=== PATIENT | female | born 1960 | race African-American/Black ===

== ENCOUNTER 2016-06-18 18:44 | Emergency (ER) | payer OTHER ==
[2016-06-18 19:01] VITALS: BP 160/90; PULSE 82; TEMP 97.9; BMI 28.3
--- NOTE | 2016-06-18 19:09 | PDOC ---
History of Present Illness - General Chief Complaint: Injury Stated Complaint: LEFT PINKY TOE INJURY Time Seen by Provider: 06/18/16 18:48 History Source: Patient Exam Limitations: No Limitations - History of Present Illness Initial Comments: 06/18/16 19:07 injured left pinky toe while dancing barefoot at [employer] hit her toe on the step. no gross deformity or swelling. Occurred: reports: just prior to arrival Severity: Yes: mild Lower Extremity Pain Location: left: 5th toe Method of Injury: Yes: other (stubbed toe ) Past History - Past Medical History Allergies/Adverse Reactions: Allergies Allergy/AdvReac Type Severity Reaction Status Date / Time No Known Drug Allergies Allergy Verified 06/18/16 18:55 Home Medications: Ambulatory Orders Calcium Carbonate/Vitamin D3 [Liquid Calcium with Vitamin D] 1 each PO DAILY Mv,Iron,Min/Folic Acid/Biotin [Hair, Skin & Nails Softgel] 66.7 mcg PO DAILY Anemia: Yes (NOT AT PRESENT) Asthma: No Cancer: No Cardiac Disorders: No CVA: No COPD: No CHF: No Dementia: No Diabetes: Yes (BORDERLINE) GI Disorders: No Disorders: No HTN: Yes Hypercholesterolemia: No Liver Disease: No Seizures: No Thyroid Disease: No - Surgical History Abdominal Surgery: No Appendectomy: No Cardiac Surgery: No Cholecystectomy: No Lung Surgery: No Neurologic Surgery: No Orthopedic Surgery: No - Psycho/Social/Smoking Cessation Hx Suicidal Ideation: No Smoking History: Never smoked Information on smoking cessation initiated: No Hx Alcohol Use: No Drug/Substance Use Hx: No Substance Use Type: None Hx Substance Use Treatment: No Review of Systems - Review of Systems Able to Perform ROS?: Yes Is the patient limited Sudanese proficient: No Constitutional: No: Symptoms Reported HEENTM: No: Symptoms Reported Respiratory: No: Symptoms reported Cardiac (ROS): No: Symptoms Reported ABD/GI: No: Symptoms Reported : No: Symptoms Reported Integumentary: No: Symptoms Reported Neurological: No: Symptoms reported *Physical Exam - Vital Signs Last Vital Signs Temp Pulse Resp BP Pulse Ox 97.9 F 82 18 160/90 98 06/18/16 18:46 06/18/16 18:46 06/18/16 18:46 06/18/16 18:46 06/18/16 18:46 - Physical Exam General Appearance: Yes: Nourished, Appropriately Dressed HEENT: positive: EOMI, ASIA Musculoskeletal: positive: Normal Inspection Extremity: positive: Normal Capillary Refill, Normal Inspection, Normal Range of Motion Integumentary: positive: Normal Color, Dry, Warm Neurologic: positive: family medicine chair II-XII NML intact, Fully Oriented, Alert, Normal Mood/ Affect, Normal Response, Motor Strength 09/16 Procedures - Splinting Progress: 06/18/16 19:31 migue tape placed to left fifth and fourth toes ED Treatment Course - RADIOLOGY Radiology Studies Ordered: Category Date Time Status TOE(S) LEFT [RAD] Stat Radiology 06/18/16 19:05 Ordered Medical Decision Making - Medical Decision Making 06/18/16 19:07 cc: left 5th toe injury at [employer] will xray to r/o fx pt refused pain medicine *DC/Admit/Observation/Transfer Diagnosis at time of Disposition: Toe fracture, left Qualifiers: Encounter type: initial encounter Toe: lesser toe Fracture type: closed Phalanx : middle Fracture alignment: displaced Qualified Code(s): S92.522A - Displaced fracture of medial phalanx of left lesser toe(s), initial encounter for closed fracture - Discharge Dispostion Disposition: HOME Condition at time of disposition: Good - Referrals Referrals: Carmelo Mora [Primary Care Provider] - Tevin Gonzales MD [Staff Physician] - - Patient Instructions Additional Instructions: follow with for follow up next week keep the toes migue taped at all times and wear your boots for support take motrin as needed for pain
== END 2016-06-18 19:36 | disposition home or self-care (01) ==
LOC: JER 18:44 → JERFT 18:44
DX: S92.522A Displaced fracture of middle phalanx of left lesser toe(s), initial encounter for closed fracture (principal); W22.8XXA Striking against or struck by other objects, initial encounter; Y93.49 Activity, other involving dancing and other rhythmic movements; Y92.22 Religious institution as the place of occurrence of the external cause; Y99.8 Other external cause status
CPT/HCPCS: 73660-TC; 99281-25

== ENCOUNTER 2024-02-10 10:48 | Emergency (ER) | payer OTHER, BC ==
[2024-02-10 11:00] VITALS: RESP 16; BMI 25.7
[2024-02-10] MEDS ORDERED: KETOROLAC TROMETHAMINE 15 MG/ML VIAL ONE (11:50)
[2024-02-10] MEDS ORDERED: LIDOCAINE 4% PATCH TP ONE (11:50)
[2024-02-10] MEDS: LIDOCAINE 4% PATCH TP ONE (11:59)
[2024-02-10] MEDS: KETOROLAC TROMETHAMINE 15 MG/ML VIAL IM ONE (11:59)
[2024-02-10] MEDS: KETOROLAC TROMETHAMINE 30 MG/1 ML VIAL IM ONE (12:00)
[2024-02-10 14:39] VITALS: PULSE 68; TEMP 97.9
[2024-02-10] MEDS: METHOCARBAMOL 500 MG TABLET PO ONE (16:13)
[2024-02-10 17:03] VITALS: BP 167/78
[2024-02-10] MEDS ORDERED: LIDOCAINE PATCH REMOVAL MC SCH (22:00)
== END 2024-02-10 17:03 | disposition home or self-care (01) ==
LOC: JERFT 10:48
PROC: 3E0133Z Introduction of Anti-inflammatory into Subcutaneous Tissue, Percutaneous Approach (ICD-10-PCS; principal; 2024-02-10)
DX: M25.511 Pain in right shoulder (principal); R29.6 Repeated falls; X50.0XXA Overexertion from strenuous movement or load, initial encounter
CPT/HCPCS: 73030-TC-RT-FY; 99284-25